=== PATIENT | female | born 1975 | race Caucasian/White ===

== ENCOUNTER → 2017-02-11 | Outpatient (CLI) | payer BC ==
--- NOTE | 2017-02-12 08:24 | MM ---
Reason for exam: screening (asymptomatic). Last mammogram was performed 1 year and 1 month ago. History: Patient is nulliparous. Taking hormonal contraceptives for 13 years beginning at age 24. Physical Findings: A clinical breast exam by your physician is recommended on an annual basis and results should be correlated with mammographic findings. MG 3D Screening Mammo W/Cad Bilateral CC and MLO view(s) were taken. Prior study comparison: December 31, 2015, bilateral MG 3d screening mammo w/cad. December 21, 2014, bilateral MG screening mammo w CAD. The breast tissue is heterogeneously dense. This may lower the sensitivity of mammography. There is chronic nodularity in the right breast. No significant changes when compared with prior studies. ASSESSMENT: Benign, BI-RAD 2 RECOMMENDATION: Routine screening mammogram of both breasts in 1 year.
== END | disposition home or self-care (01) ==
LOC: RADMAMWWP 09:06
PROVIDERS: ATTEND Obstetrics & Gynecology
DX: Z12.31 Encounter for screening mammogram for malignant neoplasm of breast (principal)
CPT/HCPCS: 77063; G0202

== ENCOUNTER → 2019-05-31 | Outpatient (CLI) | payer BC ==
--- NOTE | 2019-06-01 09:27 | MM ---
Reason for exam: screening (asymptomatic). Last mammogram was performed 1 year ago. History: Patient is nulliparous. Taking hormonal contraceptives for 14 years beginning at age 24. Physical Findings: A clinical breast exam by your physician is recommended on an annual basis and results should be correlated with mammographic findings. MG 3D Screening Mammo W/Cad Bilateral CC and MLO view(s) were taken. Prior study comparison: May 27, 2018, bilateral MG 3d screening mammo w/cad. February 11, 2017, bilateral MG 3d screening mammo w/cad. The breast tissue is heterogeneously dense. This may lower the sensitivity of mammography. Stable benign calcifications. There is no discrete abnormality. No significant changes when compared with prior studies. ASSESSMENT: Benign, BI-RAD 2 RECOMMENDATION: Routine screening mammogram of both breasts in 1 year.
== END | disposition home or self-care (01) ==
LOC: RADMAMWWP 11:14
PROVIDERS: ATTEND Family Medicine
DX: Z12.31 Encounter for screening mammogram for malignant neoplasm of breast (principal)
CPT/HCPCS: 77063; 77067

== ENCOUNTER → 2019-07-28 | Outpatient (CLI) | payer BC ==
--- NOTE | 2019-07-28 17:11 | CT ---
EXAMINATION TYPE: CT abdomen pelvis wo con DATE OF EXAM: 07/28/2019 COMPARISON: None INDICATION: Left flank pain, history of nephrolithiasis. DLP: 1062 mGycm, Automated exposure control for dose reduction was used. CONTRAST: 0 mL of Isovue 300. Study performed without Oral Contrast TECHNIQUE: Axial images were obtained from above the diaphragm to the pubic rami in the axial plane a t 5 mm thick sections. Reconstructed images are reviewed on the computer in the coronal plane. FINDINGS: Limited CT sections are obtained the lung bases. The lung bases are clear. CT ABDOMEN: Liver: Normal Spleen: Normal Pancreas: Normal Adrenal glands: The adrenal glands are normal. Gallbladder: Normal Kidneys: No masses are evident. No hydronephrosis is present. No cysts are present. Multiple calci fications are within the bilateral kidneys. This includes a 0.8 cm calcification in the mid to inferi or left kidney and several 0.2 cm calcifications at the inferior pole left kidney, a 0.3 cm calcifica tion inferior pole right kidney and the lateral 0.6 cm right kidney calcification. Some additional sm aller calcifications are present on the right. No hydroureter is evident. Aorta: Normal Inferior vena cava: Normal. CT PELVIS: Loops of bowel within the abdomen and pelvis are normal. This study is without oral contrast limi ting bowel evaluation. Appendix: Normal as visualized. Urinary bladder: Normal. Genitourinary structures: Uterus appears normal. Adnexal regions are clear. Osseous structures: No suspicious lytic or sclerotic lesions. Degenerative disc changes are present L 5-S1. IMPRESSIONS: 1. Multiple bilateral renal stones without evidence of obstruction.
== END | disposition home or self-care (01) ==
LOC: RADCTMAIN 13:34
PROVIDERS: ATTEND Family Medicine
DX: N20.0 Calculus of kidney (principal)
CPT/HCPCS: 74176

== ENCOUNTER → 2019-08-17 | Outpatient (CLI) | payer BC ==
--- NOTE | 2019-08-17 13:45 | XR ---
Abdomen HISTORY: Renal calculus Frontal view of the abdomen submitted on 2 images Correlation to prior vein film exam 12/20/2015, CT 07/28/2019 D calculi seen within the kidneys on CT are not well seen on plain film, there is overlying bowel gas which may obscure detail. There is a calculus at the level of the distal left ureter measuring appro ximately 6 mm. Bone mineralization is normal. Degenerative disc changes present at the lumbosacral ju nction. No pneumoperitoneum or bowel obstruction. IMPRESSION: Distal left ureteral calculus. Nephrolithiasis not well seen.
== END | disposition home or self-care (01) ==
LOC: RADXRMAIN 10:51
PROVIDERS: ATTEND Urology
DX: N20.2 Calculus of kidney with calculus of ureter (principal)
CPT/HCPCS: 74018

== ENCOUNTER → 2019-12-06 | Outpatient (CLI) | payer BC ==
--- NOTE | 2019-12-12 12:40 | MR ---
EXAMINATION TYPE: MR knee LT wo con DATE OF EXAM: 12/06/2019 COMPARISON: Outside knee x-ray September 19, 2019. HISTORY: Lt knee pain, swelling after running. Hx of RA TECHNIQUE: Multiplanar, multisequence images of the knee is performed without IV contrast. FINDINGS: MEDIAL MENISCUS: Anterior and posterior horns are intact without tear. LATERAL MENISCUS: Anterior and posterior horns are intact without tear. CRUCIATE LIGAMENTS: The anterior and posterior cruciate ligaments are intact and unremarkable. COLLATERAL LIGAMENTS: The medial collateral ligament and lateral collateral ligament complex are inta ct. Mild fluid signal surrounds the medial collateral ligament coronal image 19 for reference. EXTENSOR MECHANISM: Visualized quadriceps and patellar tendons are intact. EFFUSION: There is small to moderate size suprapatellar joint effusion with diminished T2 signal sugg esting synovitis or intra-articular rice bodies in patient with known rheumatoid arthritis. POPLITEAL CYST: No traditional popliteal/nielson cyst. Area of ovoid and ill-defined fluid is seen med ial to this just deep to the popliteal vessels posterior to the proximal tibia measuring 5.8 cm crani ocaudal dimension by 3.6 cm transversely coronal image 27. Portion of the ill-defined area appears to be contained to muscle. Suspect ganglion seen of the popliteus tendon sheath. Heterogeneous diminish ed T2 signal within this structure correlates with synovitis and/or Rice bodies in patient with known rheumatoid arthritis TRICOMPARTMENT SPACES: Inferiorly severe patellofemoral compartment joint space loss with moderate sp urring. More mild to moderate narrowing and spurring medial lateral tibiofemoral compartments. CARTILAGE: Full-thickness chondromalacia patella with areas of full-thickness cartilaginous loss talisha g posterior patellar pole. BONE MARROW SIGNAL: There is some heterogeneous increased T2 signal posterior patellar pole axial jonathan ge 25. Additional roughly 1.0 cm area of increased T2 signal medial aspect distal lateral femoral con dyle coronal image 19. OTHER: No additional significant abnormality is appreciated. IMPRESSION: 1. No meniscal or ligamentous tear is seen. 2. Fairly advanced patellofemoral joint arthropathy as detailed above somewhat pronounced for patient 's age likely product of known rheumatoid arthritis. 3. Mild MCL sprain injury. 4. Small to moderate size nonsimple suprapatellar joint effusion with synovitis and/or rice bodies re lated to known rheumatoid arthritis. 4. Fairly moderate to large size ganglion cyst with intracystic synovitis and/or loose bodies along t he popliteus tendon sheath. 5. Small 1.0 cm focus of osseous contusion and/or bone marrow edema medial aspect distal lateral femo ral condyle posteriorly near ACL proximal insertion.
== END | disposition home or self-care (01) ==
LOC: RADMRIMAIN 13:18
PROVIDERS: ATTEND Orthopaedic Surgery
DX: M12.862 Other specific arthropathies, not elsewhere classified, left knee (principal); S83.412A Sprain of medial collateral ligament of left knee, initial encounter; M67.462 Ganglion, left knee

== ENCOUNTER → 2020-01-23 | Outpatient (CLI) | payer BC ==
--- NOTE | 2020-01-23 21:47 | MR ---
EXAMINATION TYPE: MR knee RT wo con DATE OF EXAM: 01/23/2020 COMPARISON: None HISTORY: Rt knee pain Multiplanar multiecho imaging of the right knee was performed with no contrast. FINDINGS: There is very marked thinning of the anterior cruciate ligament. There are small knee joint effusion. The collateral ligaments appear intact. There is mild spurring of the femoral and tibial condyles. T he lateral meniscus appears intact. There is some mild degenerative thinning of the medial meniscus. I see no fracture nor dislocation. There is no evidence of focal bone destruction. IMPRESSION: Knee joint small effusion. Mild osteoarthritic changes. No evidence of meniscal tear. Degenerative thinning of the medial meniscus. Partial tear of the anterior cruciate ligament.
== END | disposition home or self-care (01) ==
LOC: RADMRIMAIN 14:26
PROVIDERS: ATTEND Orthopaedic Surgery
DX: M17.11 Unilateral primary osteoarthritis, right knee (principal); S83.511A Sprain of anterior cruciate ligament of right knee, initial encounter

== ENCOUNTER → 2020-08-14 | Outpatient (CLI) | payer BC ==
--- NOTE | 2020-08-15 11:40 | MM ---
Reason for exam: screening (asymptomatic). Last mammogram was performed 1 year and 2 months ago. History: Patient is nulliparous. Taking hormonal contraceptives for 14 years beginning at age 24. Physical Findings: A clinical breast exam by your physician is recommended on an annual basis and results should be correlated with mammographic findings. MG 3D Screening Mammo W/Cad Bilateral CC and MLO view(s) were taken. Prior study comparison: May 31, 2019, bilateral MG 3d screening mammo w/cad. May 27, 2018, bilateral MG 3d screening mammo w/cad. The breast tissue is heterogeneously dense. This may lower the sensitivity of mammography. No significant changes when compared with prior studies. ASSESSMENT: Benign, BI-RAD 2 RECOMMENDATION: Routine screening mammogram of both breasts in 1 year.
== END | disposition home or self-care (01) ==
LOC: RADMAMWWP 07:47
PROVIDERS: ATTEND Obstetrics & Gynecology
DX: Z12.31 Encounter for screening mammogram for malignant neoplasm of breast (principal)
CPT/HCPCS: 77063; 77067

== ENCOUNTER → 2020-08-23 | Outpatient (CLI) | payer BC ==
--- NOTE | 2020-08-23 13:17 | BD ---
EXAMINATION TYPE: Axial Bone Density DATE OF EXAM: 08/23/2020 COMPARISON: NONE CLINICAL HISTORY: Height: 69 Weight: 261.5 FRAX RISK QUESTIONS: Alcohol (3 or more units per day): no Family History (Parent hip fracture): no Glucocorticoids (More than 3mos): yes (Ex: prednisone, prednisolone, methylprednisolone, dexamethasone, and hydrocortisone). History of Fracture in Adulthood: no Secondary Osteoporosis: 1. Type 1 Diabetes: no 2. Hyperthyroidism: no 3. Menopause before 45: n/a 4. Malnutrition: no 5. Chronic liver disease: no Rheumatoid Arthritis: yes Current Tobacco Use: no RISK FACTORS HISTORY OF: Family History of Osteoporosis: no Active: yes Diet low in dairy products/other sources of calcium: no If Premenopausal, do you have irregular periods: no Lost more than 2 inches in height since high school: no MEDICATIONS: blood pressure meds, stomach meds, asthma meds, inhalers, gabapentin, eye drops, meds fo r rheumatoid arthritis Prednisone or other steroids: yes How Long: since 2012 Additional History: EXAM MEASUREMENTS: Bone mineral densitometry was performed using the [employer] System. Bone mineral density as measured about the Lumbar spine is: ----- L1-L4(G/cm2): 1.180 T Score Values are as follows: ----- L2: -1.1 ----- L3: 0.0 ----- L4: 1.0 ----- L1-L4: 0.0 Bone mineral density : baseline Bone mineral density about the R hip (g/cm2): 0.836 Bone mineral density about the L hip (g/cm2): 0.794 T Score values are as follows: -----R Neck: -1.5 -----L Neck: -1.8 -----R Total: -0.1 -----L Total: -0.3 Bone mineral density : baseline IMPRESSION: No evidence for osteoporosis or osteopenia. NOTE: T-SCORE=SD OF THE YOUNG ADULT MEAN.
== END | disposition home or self-care (01) ==
LOC: RADBDWWP 10:19
PROVIDERS: ATTEND Family Medicine
DX: E24.2 Drug-induced Cushing's syndrome (principal)
CPT/HCPCS: 77080

== ENCOUNTER → 2021-08-13 | Outpatient (CLI) | payer BC ==
--- NOTE | 2021-08-13 09:54 | US ---
EXAMINATION TYPE: US abdomen complete DATE OF EXAM: 08/13/2021 COMPARISON: CLINICAL HISTORY: R10.11 RUQ PAIN. NPO. EXAM MEASUREMENTS: Liver Length: 17.5 cm Gallbladder Wall: 0.2 cm CBD: 0.4 cm Spleen: 9.4 cm Right Kidney: 11.8 x 5.8 x 5.2 cm Left Kidney: 12.9 x 5.5 x 5.6 cm Pancreas: Tail obscured by overlying bowel gas. Echogenic in appearance. Liver: wnl Gallbladder: wnl Evidence for sonographic Galvez's sign: neg CBD: wnl Spleen: wnl Right Kidney: cyst seen upper pole= 1.0 x 1.0 x 0.8 cm Left Kidney: lateral upper cyst = 1.3 x 0.9 x 1.0 cm. Upper pole echogenic focus= 1.0 x 1.2 cm Upper IVC: wnl Abd Aorta: Distal obscured by overlying bowel gas, no AAA visualized at time of scan. The liver is homogenous. The intrahepatic portion of the IVC and proximal abdominal aorta are within normal limits. There is no evidence of cholelithiasis. Common bile duct is unremarkable. The visu alized portions of the pancreas are homogenous. The spleen is unremarkable. Kidneys are symmetric a nd free of hydronephrosis. IMPRESSION: Bilateral renal cysts.
== END | disposition home or self-care (01) ==
LOC: RADUSWWP 09:20
PROVIDERS: ATTEND Family Medicine
DX: N28.1 Cyst of kidney, acquired (principal)
CPT/HCPCS: 76700

== ENCOUNTER → 2021-09-03 | Outpatient (CLI) | payer BC ==
--- NOTE | 2021-09-05 12:01 | MM ---
Reason for exam: screening (asymptomatic). Last mammogram was performed 1 year and 1 month ago. History: Patient is nulliparous. Taking hormonal contraceptives for 15 years beginning at age 24. Physical Findings: A clinical breast exam by your physician is recommended on an annual basis and results should be correlated with mammographic findings. MG 3D Screening Mammo W/Cad Bilateral CC, MLO, and XCCL view(s) were taken. Prior study comparison: August 14, 2020, bilateral MG 3d screening mammo w/cad. May 31, 2019, bilateral MG 3d screening mammo w/cad. There are scattered fibroglandular densities. There is chronic nodularity in the left breast. Numerous benign round calcifications, redemonstrated bilaterally. No significant changes when compared with prior studies. ASSESSMENT: Benign, BI-RAD 2 RECOMMENDATION: Routine screening mammogram of both breasts in 1 year.
== END | disposition home or self-care (01) ==
LOC: RADMAMWWP 08-13 09:16
PROVIDERS: ATTEND Obstetrics & Gynecology
DX: Z12.31 Encounter for screening mammogram for malignant neoplasm of breast (principal)
CPT/HCPCS: 77063; 77067

== ENCOUNTER → 2022-04-30 | Outpatient (CLI) | payer BC ==
[2022-04-30 10:55] VITALS: BP 130/90; PULSE 80; RESP 18
--- NOTE | 2022-04-30 14:48 | P.PAINPG ---
Objective - Vital Signs Vital signs: Intake & Output 04/29/22 04/30/22 04/30/22 18:59 06:59 18:59 Weight 113.852 kg PQRS Measure Charge Sheet Comment: HISTORY OF PRESENT ILLNESS: 47 yr old female as a referral from [facility] presents today w severe and chronic LBP secondary to disc bulges, anterolisthesis, facet arthropathy without myelopathy for evaluation. Pt states her pain level is currently at 8/10 in intensity, constant, localized in lumbar spine, sharp/ achy in character w shooting towards BL glutes and LLE. Pt states she fell due to BLE weakness losing teeth. Provoked w walking/standing for periods of 15 min or more. Palliated w PT in 2020, home exercise regimen, chiropractic treatments in the past, heat, ice, meds (Motrin, Flexeril, Neurontin, Tylenol Arthritis), hot bath soaks w Epsom salts, topicals, OTC patches, repositioning and rest. PMH: OA, RA, HTN, Asthma, GERD, Bipolar Disorder, Anxiety PSH: Cataract Resection w Lens Placement, Mandible Bone Grafting SH: Negative x 3 FH: Non contributory All: See list Meds: See list REVIEW OF ORGAN SYSTEMS: CONSTITUTIONAL: No fevers or chills. No recent weight loss. NEUROLOGICAL: + numbness and tingling along the distal extremities. No seizure disorders or headaches. MUSCULOSKELETAL: + pain PSYCHIATRIC: Denies current depression or suicidal thoughts. Physical Examinations : Constitutional : Cooperative , not in acute distress . Neurologic : Cranial nerve II to XII intact. No focal neurological deficits. Psychiatric : alert & oriented x 3. Matching mood & appropriate affect. Judgment & insight intact. Musculoskeletal : Cervical Spine Motor strength in the deltoid and biceps: Normal right side. Normal Left side Motor strength biceps and the wrist extensors: Normal right side . Normal left side Motor strength in the triceps muscle: Normal right side. Normal left side Deep tendon reflexes: Normal at the biceps. Normal at Brachioradialis. Normal at triceps Vertebral body tenderness to deep palpation over Cervical facet loading test: positive bilaterally Spurling test: positive bilaterally Neck distraction test: positive bilaterally Diallo sign: positive bilaterally Lumbar spine Motor strength lower extremities ,thigh and legs 5/5 Right side , 5/5 Left side Deep tendon reflexes : Normal Knee Jerk. Normal Ankle Jerk Vertebral body tenderness over L5 Lumbar facet Loading Test: positive Right / positive Left Range of motion of the lumbar spine Flexion 30 degrees, extension 10 degrees Straight Leg Raise test: Left/ Right positive at degree Latrell test: positive right / positive left. Severe tenderness over the Sacroiliac joint on the Right / Left sides Gaenslen test: positive bilaterally Seated flexion test: positive bilaterally. Sacral spine : Severe tenderness over the Sacroiliac joint: right side / left side Range of motion: Flexion of the lumbar spine <60 degrees Range of motion: Extension of the lumbar spine <20 degrees Gaenslen's Test positive Johnnie's Test positive Latrell test: positive right side / left side Thigh Thrust Test Sacral Thrust Test Imaging: MRI without contrast of the lumbar spine from 02/20/22 reviewed Assessment/ Plan : Lumbar DDD Recommendation of TOMASA L5-S1. May need a series of injections, up to 3 within a 6 mo period, for optimal pain relief. Risks, benefits of procedure discussed and patient verbalized understanding. Admits to aspirin or anti- coagulant use or medical history of diabetes. Protocol for discontinuation/ continuation of medications vitor procedure discussed. All questions answered. I have spent greater than 30 minutes on patient care today. Dr Ko was available by phone for the evaluation of this patient. The time was used to review the medical records including relevant urine studies and Prescription history (MAPs), review of the available imaging, evaluation and examination of the patient, coordination of care with the medical staff and if applicable referring physicians, as well as creation of the medical record - Pain Location Lower Back Non-Pharmacological Interventions: Chiropractic Treatment, Heat, Home Exercise, Ice, Inactivity, Physical Therapy, Position/Reposition, Relaxation Technique, Stretching Pharmacological Interventions: PRN Medication, Scheduled Medication, Topical Medication PQRS Narrative: Smoking Status Never smoker Pain Intensity [Lower Back] 8 Scale Used Numeric (1 - 10) Hx Alcohol Use (MH) Yes Home Medications: Ambulatory Orders Albuterol Sulfate [Proair Hfa] 2 puff INHALATION Q4-6H PRN 04/17/19 Atomoxetine HCl [Strattera] 100 mg PO QAM 04/17/19 Eye Drop 1 drop BOTH EYES HS 04/17/19 Fluticasone Nasal [place] [Flonase Nasal [place]] 2 spr EA NOSTRIL DAILY 04/17/19 Fluticasone Propion/Salmeterol [Advair 500-50 Diskus] 1 inhalation PO BID Gabapentin [Neurontin] 300 mg PO BID 04/17/19 Ibuprofen 800 mg PO BID 04/17/19 L.acidoph,Paracasei, B.lactis [Probiotic] 1 each PO DAILY 04/17/19 Levocetirizine Dihydrochloride [Xyzal] 5 mg PO BID 04/17/19 Magnesium Oxide 400 mg PO BID 04/17/19 Montelukast [Singulair] 10 mg PO DAILY 04/17/19 Mv-Min/Vit C/Glut/Lysine/Hc124 [Airborne Tablet Chewable] 1 each PO DAILY 04/17/19 Gans-3 Fatty Acids/Fish Oil [Fish Oil 1,000 mg Softgel] 2 each PO BID 04/17/19 Pantoprazole [Protonix] 40 mg PO BID 04/17/19 Potassium 99 mg PO BID 04/17/19 Sertraline [Zoloft] 100 mg PO DAILY 04/17/19 lamoTRIgine 150 mg PO DAILY 04/17/19 Acetaminophen [Tylenol Arthritis] 1,300 mg PO TID 04/29/22 Alendronate Sodium [Fosamax] 70 mg PO WEEKLY 04/29/22 Azelastine HCl [Astepro] 2 spray NASAL DAILY 04/29/22 Calcium Carbonate [Tums] 1,000 mg PO DAILY 04/29/22 Cholecalciferol [Vitamin D3 (125 Mcg = 5000 Iu)] 125 mcg PO DAILY 04/29/22 Cienva 1 tab PO DAILY 04/29/22 Co Q 10 (Unknown Dose) 1 tab PO DAILY 04/29/22 Collagen. 3 dose PO DAILY 04/29/22 Cyclobenzaprine [Flexeril] 5 mg PO DAILY 04/29/22 Hiventra Human Plasma 2 gm IV Q7D 04/29/22 Hiventra Human Plasma 10 gm IV Q7D 04/29/22 Losartan/Hydrochlorothiazide [Losartan-Hctz 100-25 mg Tab] 1 tab PO DAILY 04/29/22 Methyl Salicylate/Menth/Camph [Salonpas 3.1%-6.0%-10.0% Patch] 1 patch TOPICAL DAILY 04/29/22 Metoprolol Tartrate [Lopressor] 75 mg PO BID 04/29/22 Oluminat 2 mg PO DAILY 04/29/22 Potassium Chloride [K-Tab ER] 20 meq PO DAILY 04/29/22 amLODIPine BESYLATE 10 mg PO DAILY 04/29/22 predniSONE 22.5 mg PO DAILY 04/29/22 Controlled Substance Measures - Controlled Substance Measures Is patient prescribed a controlled substance at discharge?: No
== END ==
LOC: PNWHC3 10:22
PROVIDERS: ATTEND Specialist
DX: M51.26 Other intervertebral disc displacement, lumbar region (principal); M48.062 Spinal stenosis, lumbar region with neurogenic claudication; M43.16 Spondylolisthesis, lumbar region
CPT/HCPCS: 99211

== ENCOUNTER 2022-06-09 09:14 | Day surgery (SDC) | payer BC ==
[2022-06-08 13:24] VITALS: BMI 37.0
[~2022-06-09 09:14] MED LIST: LACTATED RINGERS 1,000 ML IV SCH; LIDOCAINE 1% (10MG/ML) FOR IV START INTRADERMA PRN
[2022-06-09 09:32] VITALS: TEMP 97.7
[2022-06-09 09:44] LABS: Glucose,Whole Blood 97 mg/dL (70-110)
[2022-06-09] MEDS ORDERED: methylPREDNISolone ACETATE 40 MG/ML 1 ML VIAL ONE (09:47)
[2022-06-09] MEDS ORDERED: LACTATED RINGERS 1,000 ML IV SCH (10:00)
--- NOTE | 2022-06-09 10:00 | P.PCN ---
Date of Procedure: 06/09/22 Description of Procedure: Procedure: 1. L5-S1 Epidural steroid injection under fluoroscopic guidance # 1/ , 2. Lumbar epidurogram PREOPERATIVE DIAGNOSIS: Lumbar degenerative disc disease, and Lumbar radiculopathy. POSTOPERATIVE DIAGNOSIS: Lumbar degenerative disc disease, and Lumbar radiculopathy. SURGEON: Kristi Villar ANESTHESIA: Local with 1% lidocaine, and IV sedation: none ALLERGIC: Iodine contrast as per patient EBL: None. Specimen removed: None Fluoroscopic image: saved to electronic medical records PROCEDURE INDICATION: The patient had history of Lumbar degenerative disc disease and Lumbar radiculopathy. Failed to conservative therapy. Presented for epidural steroid injection. PROCEDURE DESCRIPTION: The patient was seen and identified in the preoperative area. Risks, benefits, complications, and alternatives were discussed with the patient. The patient agreed to proceed with the procedure and signed the consent. IV was started, and vital signs were stable. Patient was taken to the procedure area, and time out was completed. The patient was placed in the prone position on procedure table and a pillow was placed under the abdomen to reduce lumbar lordosis. The lumbosacral area was prepped and draped in the usual sterile fashion. Critical pause was taken. Vital signs were closely monitored during the procedure. Using anterior-posterior fluoroscopy, the L5-S1 interlaminar space was identified, and skin and deeper tissues were localized with 1% lidocaine. Using anterior-posterior fluoroscopy, lateral fluoroscopy, and etef-[id number] technique, a18 gauge 6 inch Tuohy epidural needle entered the epidural space. After negative aspiration of CSF and blood with no paresthesias, no contrast injected as patient is ALLERGIC to IVP dye, and iodine. Again after negative aspiration of CSF and blood with no paresthesias, 8 mL of block solution was injected into the epidural space. Block solution contained 40 mg of Depo-Medrol, and 7 mL of preservative-free normal saline. Needle was withdrawn intact, skin was cleansed, and bandages were applied. COMPLICATIONS: None. DISPOSITION / PLANS: The patient was placed in a supine position and transferred to the recovery area in a stable condition for observation. Patient was discharged from the recovery room after meeting discharge criteria. Home discharge instructions given to the patient by the staff. The patient was reexamined prior to discharge. The patient will schedule a follow up in the clinic in 4 weeks.
--- NOTE | 2022-06-09 10:06 | FL ---
Intraoperative/procedural fluoroscopic services were provided for lumbar epidural steroid injection. Total fluoroscopy time is 8 seconds with a total of 2 submitted images to PACS. Please see the operat payal note for further details.
[2022-06-09 10:08] VITALS: PULSE 77; RESP 20
[2022-06-09 10:23] VITALS: BP 150/98
== END 2022-06-09 10:24 | disposition home or self-care (01) ==
LOC: ORPAIN 09:14
DX: M51.16 Intervertebral disc disorders with radiculopathy, lumbar region (principal); F31.9 Bipolar disorder, unspecified; K21.9 Gastro-esophageal reflux disease without esophagitis; M19.90 Unspecified osteoarthritis, unspecified site; J45.909 Unspecified asthma, uncomplicated; M06.9 Rheumatoid arthritis, unspecified; Z79.51 Long term (current) use of inhaled steroids; Z79.899 Other long term (current) drug therapy; Z79.2 Long term (current) use of antibiotics; Z98.890 Other specified postprocedural states; Z98.49 Cataract extraction status, unspecified eye; Z88.9 Allergy status to unspecified drugs, medicaments and biological substances
CPT/HCPCS: 81025; 62323; J1030

== ENCOUNTER → 2022-07-01 | Outpatient (CLI) | payer BC ==
[2022-07-01 14:33] VITALS: BP 166/97; PULSE 73; RESP 16; TEMP 98.8
--- NOTE | 2022-07-01 14:53 | P.PAINPG ---
PQRS Measure Charge Sheet Comment: A 47 yr old female with a history of severe and chronic low back pain secondary to lumbar DDD and spondylosis with facet arthropathy without myelopathy presents today for evaluation s/p TOMASA L5-S1. Pt states she experienced 50 % pain relief x 3 wks s/p procedure. Pain level is currently at 7 /10 in intensity, constant, localized in L lower lumbar spine, dull/ achy in character w shooting towards L glutes. Pain is provoked by bending, twisting, lifting. Pain is alleviated with PT in May 2022, massage therapy in the past, chiropractic treatments in 2018, home stretching regimen as tolerated, alternating heat & ice, medications (Prednisone 15mg, Flexeril, [place] prn, Neurontin, Ibu 800mg from her cargo trimmer), OTC patches, laying supine and rest. Interventional pain procedures completed include TOMASA L5-S1 x1 Patient is currently on Prednisone 15mg, Flexeril, [place] prn, Neurontin, Ibu 800mg Patient denies any side effects of the medication(s), denies excessive drowsiness or sleepiness, denies suicidal ideation and reports that the current pain medication is helping to control the pain and improve activities of daily living. Patient denies any motor or sensory deficits. Patient denies any fever or night sweats, denies any change in the bowel movements or urination. Physical Examination: -Constitutional: Cooperative. Not in acute distress . - Neurologic: Cranial nerve II to XII intact. No focal neurological deficits. - Psychatric: Alert & oriented x 3. Matching mood & appropriate affect. Judgment and insight intact. - Musculoskeletal: Cervical spine: Muscle bulk/ tone/ strength in the bilateral upper extremities normal Vertebral body tenderness to palpation over Spurling test positive Distraction test positive Facet loading test positive Thoracic spine Muscle bulk / tone/ strength in the bilateral paraspinal muscles normal Vertebral body tender to palpation over Facet loading test positive Lumbar spine: Motor bulk/ tone/ strength lower extremities , thigh and legs : 5/5 Deep tendon reflexes : Normal Knee Jerk. Normal Ankle Jerk . Vertebral body tenderness to palpation over L5 Lumbar Facet Loading Test positive Straight Leg Raise: positive at 30 degrees right side/ left side Gaenslen's Test positive Sacral spine : Severe tenderness over the Sacroiliac joint: right side / left side Range of motion: Flexion of the lumbar spine <60 degrees Range of motion: Extension of the lumbar spine <20 degrees Gaenslen's Test positive Latrell test: positive right side / left side Thigh Thrust Test Sacral Thrust Test Assessment and plan: Chronic low back pain secondary to lumbar degenerative disc disease, spondylosis with facet arthropathy without myelopathy Recommendation of L paramedian TOMASA L5-S1 #2. May need a series, up to 3 within a 6 mo period, for optimal pain relief. Risks, benefits of procedure discussed and pt verbalized understanding. Admits to anticoagulant use or medical history of diabetes. Protocol for discontinuation/ continuation of medications vitor procedure discussed. All patient questions answered I have spent less than 30 minutes on patient care today. Dr Ko was available by phone for the evaluation of this patient. The time was used to review the medical records including relevant urine studies and Prescription history (MAPs), review of the available imaging, evaluation and examination of the patient, coordination of care with the medical staff and if applicable referring physicians, as well as creation of the medical record - Pain Location Left Lower Back Non-Pharmacological Interventions: Chiropractic Treatment, Heat, Home Exercise, Ice, Inactivity, Massage, Physical Therapy, Position/Reposition, Sitting, Stretching Pharmacological Interventions: Epidural, PRN Medication, Scheduled Medication, Topical Medication PQRS Narrative: Smoking Status Never smoker Hx Alcohol Use (MH) Yes Home Medications: Ambulatory Orders Albuterol Sulfate [Proair Hfa] 2 puff INHALATION Q4-6H PRN 04/17/19 Atomoxetine HCl [Strattera] 100 mg PO QAM 04/17/19 Eye Drop 1 drop BOTH EYES HS 04/17/19 Fluticasone Nasal [place] [Flonase Nasal [place]] 2 spr EA NOSTRIL DAILY 04/17/19 Fluticasone Propion/Salmeterol [Advair 500-50 Diskus] 1 inhalation PO BID 04/17/19 Gabapentin [Neurontin] 300 mg PO BID 04/17/19 Ibuprofen 800 mg PO BID 04/17/19 L.acidoph,Paracasei, B.lactis [Probiotic] 1 each PO DAILY 04/17/19 Levocetirizine Dihydrochloride [Xyzal] 5 mg PO BID 04/17/19 Magnesium Oxide 400 mg PO BID 04/17/19 Montelukast [Singulair] 10 mg PO DAILY 04/17/19 Mv-Min/Vit C/Glut/Lysine/Hc124 [Airborne Tablet Chewable] 1 each PO DAILY 04/17/19 [place]-3 Fatty Acids/Fish Oil [Fish Oil 1,000 mg Softgel] 2 each PO BID 04/17/19 Pantoprazole [Protonix] 40 mg PO BID 04/17/19 Potassium 99 mg PO BID 04/17/19 Sertraline [Zoloft] 100 mg PO DAILY 04/17/19 lamoTRIgine 150 mg PO DAILY 04/17/19 Acetaminophen [Tylenol Arthritis] 1,300 mg PO TID 04/29/22 Alendronate Sodium [Fosamax] 70 mg PO WEEKLY 04/29/22 Azelastine HCl [Astepro] 2 spray NASAL DAILY 04/29/22 Calcium Carbonate [Tums] 1,000 mg PO DAILY 04/29/22 Cholecalciferol [Vitamin D3 (125 Mcg = 5000 Iu)] 125 mcg PO DAILY 04/29/22 Co Q 10 (Unknown Dose) 1 tab PO DAILY 04/29/22 Collagen. 3 dose PO DAILY 04/29/22 Cyclobenzaprine [Flexeril] 5 mg PO DAILY 04/29/22 Hiventra Human Plasma 2 gm IV Q7D 04/29/22 Hiventra Human Plasma 10 gm IV Q7D 04/29/22 Losartan/Hydrochlorothiazide [Losartan-Hctz 100-25 mg Tab] 1 tab PO DAILY 04/29/22 Methyl Salicylate/Menth/Camph [Salonpas 3.1%-6.0%-10.0% Patch] 1 patch TOPICAL DAILY 04/29/22 Metoprolol Tartrate [Lopressor] 75 mg PO BID 04/29/22 Oluminat 2 mg PO DAILY 04/29/22 Potassium Chloride [K-Tab ER] 20 meq PO DAILY 04/29/22 amLODIPine BESYLATE 10 mg PO DAILY 04/29/22 predniSONE 15 mg PO DAILY 04/29/22 Vienva Control 1 tab PO DAILY 06/08/22 Controlled Substance Measures - Controlled Substance Measures Is patient prescribed a controlled substance at discharge?: No
== END ==
LOC: PNWHC3 14:09
PROVIDERS: ATTEND Specialist
DX: M47.816 Spondylosis without myelopathy or radiculopathy, lumbar region (principal); M51.36 Other intervertebral disc degeneration, lumbar region; Z88.8 Allergy status to other drugs, medicaments and biological substances
CPT/HCPCS: 99211

== ENCOUNTER → 2022-10-22 | Outpatient (CLI) | payer BC ==
--- NOTE | 2022-10-23 07:57 | MM ---
Reason for Exam: Screening (asymptomatic). Last mammogram was performed 1 year(s) and 2 month(s) ago. Patient History: Menarche at age 13. Patient has no children. Currently using Hormonal Contraceptives, beginning at age 24 for 15 years. Risk Values: Floridalma 5 year model risk: 0.9%. NCI Lifetime model risk: 10.5%. Prior Study Comparison: 05/31/2019 Bilateral Screening Mammogram, [facility]. 08/14/2020 Bilateral Screening Mammogram, [facility]. 09/03/2021 Bilateral Screening Mammogram, [facility]. Tissue Density: The breast tissue is heterogeneously dense. This may lower the sensitivity of mammography. Findings: Analyzed By CAD. There are multiple scattered benign-appearing tiny round calcifications throughout the bilateral breasts redemonstrated. Benign-appearing right axillary lymph nodes are redemonstrated. There is no suspicious new group of microcalcifications or new suspicious mass in either breast. Overall Assessment: Benign, BI-RAD 2 Management: Screening Mammogram of both breasts in 1 year. A clinical breast exam by your physician is recommended on an annual basis and results should be correlated with mammographic findings. Electronically signed and approved by: Tico Love M.D.
== END | disposition home or self-care (01) ==
LOC: RADMAMWWP 13:13
PROVIDERS: ATTEND Obstetrics & Gynecology
DX: Z12.31 Encounter for screening mammogram for malignant neoplasm of breast (principal)
CPT/HCPCS: 77063; 77067

== ENCOUNTER → 2023-06-16 | Outpatient (CLI) | payer BC ==
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
== END ==
LOC: 3 N SLEEP 14:40
PROVIDERS: ATTEND Internal Medicine
DX: G47.33 Obstructive sleep apnea (adult) (pediatric) (principal); E66.9 Obesity, unspecified; J45.909 Unspecified asthma, uncomplicated; I10 Essential (primary) hypertension; M06.9 Rheumatoid arthritis, unspecified; F32.A Depression, unspecified; F90.9 Attention-deficit hyperactivity disorder, unspecified type; F41.9 Anxiety disorder, unspecified; G47.21 Circadian rhythm sleep disorder, delayed sleep phase type; E78.5 Hyperlipidemia, unspecified; K21.9 Gastro-esophageal reflux disease without esophagitis; R51.9 Headache, unspecified; M48.00 Spinal stenosis, site unspecified; M81.0 Age-related osteoporosis without current pathological fracture; D84.81 Immunodeficiency due to conditions classified elsewhere; Z98.1 Arthrodesis status; Z87.442 Personal history of urinary calculi; Z68.41 Body mass index [BMI] 40.0-44.9, adult; Z87.2 Personal history of diseases of the skin and subcutaneous tissue; M79.7 Fibromyalgia; Z79.899 Other long term (current) drug therapy; Z88.8 Allergy status to other drugs, medicaments and biological substances
CPT/HCPCS: 99211

== ENCOUNTER → 2023-08-24 | Outpatient (CLI) | payer BC ==
--- NOTE | 2023-08-25 12:24 | P.PCN ---
Description of Procedure: CLINICAL: A home sleep apnea test has been done for confirmation of possible obstructive sleep apnea-hypopnea syndrome. DESCRIPTION OF PROCEDURE: RESULTS: Recording time was 7 hours 18 minutes. Evaluation time was 7 hours 2 minutes. Evaluation time is sufficient for making conclusion about results of the test. Raw data of sleep recording has been reviewed and is adequate. Respiratory channel showed 0 apneas and 69 hypopneas. Apnea-hypopnea index was 9.8 per hour. Pulse rate in the range between minimum 61, maximum 132, average 68 by computer calculation. Lowest desaturation was 81%. IMPRESSION: 1. Obstructive Sleep Apnea Hypopnea Syndrome in mild range. Patient presents with symptoms of significant excessive daytime sleepiness with [place] Sleepiness Scale 18. Please see other impressions from consultation. PLAN: 1. The patient will be started on auto-PAP treatment for correction of respiratory abnormallities during sleep. 2. I will see patient for follow up visit to discuss results of the test, evaluate clinical response on treatment with PAP therapy and make any necessary adjustments related to mask fitting, pressure, and humidification. 3. Watching and losing weight. 4. Sleep hygiene with regular time in bed for at least 8 hours. 5. No driving if feeling any sleepiness. Thank you very much for allowing me to participate in the management of your patient. Sincerely, Kyler Ramsey MD, PhD, FAASM Diplomat of [place] [employer] Sleep Medicine Board of [place] [employer] Cardiac Tech of [facility] [place]
== END ==
LOC: 3 N SLEEP 16:59
PROVIDERS: ATTEND Internal Medicine
DX: G47.33 Obstructive sleep apnea (adult) (pediatric) (principal); G47.10 Hypersomnia, unspecified; Z88.8 Allergy status to other drugs, medicaments and biological substances

== ENCOUNTER → 2023-12-21 | Outpatient (CLI) | payer BC ==
--- NOTE | 2023-12-22 18:47 | MM ---
Reason for Exam: Screening (asymptomatic). Last mammogram was performed 1 year(s) and 2 month(s) ago. Patient History: Menarche at age 13. Patient has no children. Currently using Hormonal Contraceptives, beginning at age 24 for 15 years. Risk Values: Floridalma 5 year model risk: 1.0%. NCI Lifetime model risk: 10.3%. Prior Study Comparison: 08/14/2020 Bilateral Screening Mammogram, [facility]. 09/03/2021 Bilateral Screening Mammogram, [facility]. 10/22/2022 Bilateral MG 3D screening mammo w/cad, [facility]. Tissue Density: The breasts are heterogeneously dense, which may obscure small masses. Findings: Analyzed By CAD. Chronic nodularity on the left. Unchanged diffuse bilateral round and punctate calcifications. Areas of asymmetric density are also similar. There is no suspicious group of microcalcifications or new suspicious mass in either breast. Overall Assessment: Benign, BI-RAD 2 Management: Screening Mammogram of both breasts in 1 year. . Patient should continue monthly self-breast exams. A clinical breast exam by your physician is recommended on an annual basis. This exam should not preclude additional follow-up of suspicious palpable abnormalities. Note on Floridalma scores and lifetime risk: 1. A Floridalma score greater than 3% is considered moderate risk. If this is the case, consider specialist referral to assess eligibility for a risk reducing agent. 2. If overall lifetime risk for the development of breast cancer is 20% or higher, the patient may qualify for future screening with alternating mammogram and breast MRI. Electronically signed and approved by: Reta Miller M.D. Radiologist
== END | disposition home or self-care (01) ==
LOC: RADMAMWWP 13:26
PROVIDERS: ATTEND Obstetrics & Gynecology
DX: Z12.31 Encounter for screening mammogram for malignant neoplasm of breast (principal)
CPT/HCPCS: 77063; 77067